=== PATIENT | male | born 1995 | race African-American/Black ===

== ENCOUNTER 2018-11-25 13:19 | Emergency (ER) | payer OTHER ==
[~2018-11-25] VITALS: Ht 193 cm; Wt 145.5 kg
[2018-11-25 13:44] VITALS: BP 143/80; Ht 193 cm; Wt 145.5 kg
[2018-11-25] MEDS ORDERED: EC-NAPROSYN500 MG PO (17:13)
[2018-11-25] MEDS ORDERED: OCUFLOX 0.3 % OP5 ML LEFT EYE (17:15)
== END 2018-11-25 18:17 | disposition home or self-care (01) ==
LOC: D.ER 13:19
DX: S05.92XA Unspecified injury of left eye and orbit, initial encounter (principal); Y04.2XXA Assault by strike against or bumped into by another person, initial encounter; Y93.89 Activity, other specified; Y92.89 Other specified places as the place of occurrence of the external cause; S00.83XA Contusion of other part of head, initial encounter; H57.12 Ocular pain, left eye

== ENCOUNTER 2019-07-31 08:08 | Emergency (ER) | payer OTHER ==
[~2019-07-31] VITALS: Ht 193 cm; Wt 145.5 kg
[~2019-07-31 08:08] MED LIST: EC-NAPROSYN500 MG PO; OCUFLOX 0.3 % OP5 ML LEFT EYE
[2019-07-31 08:11] VITALS: Ht 193 cm; Wt 145.5 kg
[2019-07-31] MEDS ORDERED: WELLBUTRIN SR150 MG PO (08:22)
[2019-07-31 08:38] LABS: APPEARANCE CLEAR (CLEAR); BILIRUBIN NEGATIVE (NEGATIVE); COLOR STRAW (YELLOW); GLUCOSE 1000 mg/dL (NEGATIVE); KETONE LARGE mg/dL (NEGATIVE); NITRITE NEGATIVE (NEGATIVE); PROTEIN 2+ mg/dL (NEGATIVE); SPECIFIC GRAVITY 1.015 (1.005-1.020); UROBILINOGEN NORMAL (NORMAL)
[2019-07-31 08:40] LABS: EPITHELIAL CELLS 0-5 /hpf (0-5); RED CELLS - URINE 0-5 /hpf (0-5); WHITE CELLS - URINE 0-5 /hpf (0-5)
[2019-07-31 08:41] LABS: UDS - AMPHET NEGATIVE QUAL (NEGATIVE); UDS - BARB NEGATIVE QUAL (NEGATIVE); UDS - BENZO NEGATIVE QUAL (NEGATIVE); UDS - COCAINE NEGATIVE QUAL (NEGATIVE); UDS - OPIATE NEGATIVE QUAL (NEGATIVE); UDS - PCP NEGATIVE QUAL (NEGATIVE); UDS - THC NEGATIVE QUAL (NEGATIVE)
[2019-07-31 08:49] LABS: BASOPHILS 0.2 % (0-2); EOSINOPHILS 0.1 % (0-7); HEMATOCRIT 43.1 % (42.0-54.0); HEMOGLOBIN 16.1 g/dL (13.5-17.5); IMMATURE GRANULOCYTES 0.2 % (0-5); LYMPHOCYTES 22.3 % (15-50); MCH 32.1 pg (26.0-34.0); MCHC 37.4 g/dL (31.0-37.0); MCV 85.9 fL (80.0-100.0); NEUTROPHILS 70.2 % (40-80); PLATELET COUNT 282 10x3/uL (130-400); RBC 5.02 10x6/uL (4.20-6.10); WBC 12.6 10x3/uL (4.8-10.8)
[2019-07-31 09:05] LABS: ALBUMIN 4.2 g/dL (3.4-5.0); ALKALINE PHOSPHATASE 62 U/L (46-116); ALT (SGPT) 48 U/L (10-68); BILIRUBIN - TOTAL 0.38 mg/dL (0.2-1.3); CALC OSMOLALITY 283 mosm/kg (275-300); CALCIUM 8.6 mg/dL (8.5-10.1); CARBON DIOXIDE 20.4 mmol/L (21.0-32.0); CHLORIDE - SERUM 101 mmol/L (98-107); GLUCOSE 241 mg/dL (74-106); POTASSIUM - SERUM 3.5 mmol/L (3.5-5.1); PROTEIN - SERUM 8.8 g/dL (6.4-8.2); SODIUM 139 mmol/L (136-145); UREA NITROGEN 6 mg/dL (7-18); eGFR NON AFRICAN AMERICAN > 90 mL/min (90-120)
[2019-07-31 09:08] LABS: MAGNESIUM - SERUM 1.7 mg/dL (1.8-2.4)
--- NOTE | 2019-07-31 09:32 | NUR ---
DR. HENDRICKS NOTIFIED AND SITTER AT ORDERED. SITTER AT BEDSIDE. NOTIFIED CHARGE NURSE AND ATTENDING IN REGARDS TO ASSESSMENT FINDINGS. RESOURCES GIVEN TO PT AND SAFETY PLAN INTIATED.
[2019-07-31 20:04] VITALS: BP 132/87
== END 2019-07-31 20:11 ==
LOC: D.ER 08:08
PROVIDERS: Emergency Medicine
DX: R45.851 Suicidal ideations (principal); F32.9 Major depressive disorder, single episode, unspecified

== ENCOUNTER 2019-10-09 05:56 | Emergency (ER) | payer OTHER ==
[~2019-10-09] VITALS: Ht 193 cm; Wt 145.5 kg
[~2019-10-09 05:56] MED LIST changes: +WELLBUTRIN SR150 MG PO
[2019-10-09 05:58] VITALS: BP 113/77; Ht 193 cm; Wt 145.5 kg
[2019-10-09] MEDS ORDERED: [UNRECOGNIZED DRUG - OTHER] (06:05)
[2019-10-09 06:29] LABS: BASOPHILS 0.1 % (0-2); EOSINOPHILS 0.4 % (0-7); HEMATOCRIT 42.1 % (42.0-54.0); HEMOGLOBIN 14.9 g/dL (13.5-17.5); IMMATURE GRANULOCYTES 0.3 % (0-5); LYMPHOCYTES 32.6 % (15-50); MCH 31.8 pg (26.0-34.0); MCHC 35.4 g/dL (31.0-37.0); MCV 89.8 fL (80.0-100.0); MEAN PLATELET VOLUME 10.3 fL (7.4-10.4); MONOCYTES 4.4 % (2-11); NEUTROPHILS 62.2 % (40-80); PLATELET COUNT 274 10x3/uL (130-400); RBC 4.69 10x6/uL (4.20-6.10); WBC 8.9 10x3/uL (4.8-10.8)
[2019-10-09 06:49] LABS: CALC OSMOLALITY 284 mosm/kg (275-300); CALCIUM 8.9 mg/dL (8.5-10.1); CARBON DIOXIDE 22.3 mmol/L (21.0-32.0); CHLORIDE - SERUM 101 mmol/L (98-107); CREATININE - SERUM 0.9 mg/dL (0.6-1.3); GLUCOSE 340 mg/dL (74-106); POTASSIUM - SERUM 3.6 mmol/L (3.5-5.1); SODIUM 137 mmol/L (136-145); UREA NITROGEN 7 mg/dL (7-18); eGFR NON AFRICAN AMERICAN > 90 mL/min (90-120)
[2019-10-09 06:51] LABS: KETONE - SERUM NEGATIVE (NEGATIVE)
[2019-10-09 06:54] LABS: ALBUMIN 3.8 g/dL (3.4-5.0); ALKALINE PHOSPHATASE 69 U/L (46-116); ALT (SGPT) 39 U/L (10-68); BILIRUBIN - TOTAL 0.27 mg/dL (0.2-1.3); MAGNESIUM - SERUM 1.7 mg/dL (1.8-2.4); PROTEIN - SERUM 8.3 g/dL (6.4-8.2)
== END 2019-10-09 07:01 | disposition left against medical advice (07) ==
LOC: D.ER 05:56
PROVIDERS: Emergency Medicine
DX: F43.0 Acute stress reaction (principal); F45.8 Other somatoform disorders; Z91.19 Patient's noncompliance with other medical treatment and regimen; R45.4 Irritability and anger; E11.65 Type 2 diabetes mellitus with hyperglycemia; Z79.84 Long term (current) use of oral hypoglycemic drugs